=== PATIENT | female | born 1950 | race American Indian/Alaskan Native ===

== ENCOUNTER 2018-08-14 10:10 | Outpatient (CLI) | payer MEDICARE ==
--- NOTE | 2018-08-14 11:31 | Mammography Report ---
Screening tomomammogram and 2-D mammography: Standard imaging demonstrates an intermediate fibroglandular density pattern with asymmetric distribution. There is no focal mass and no significant architectural distortion identified on the standard images. Scattered benign-appearing microcalcifications are noted. Tomomammography shows no additional or suspicious findings. CAD used. Impression: Benign findings. Recommendation: Annual mammogram followup. This patient's prior exams however are being requested for comparison. If made available a comparison report will be issued. BI-RADS CATEGORY: 1 = Negative ACR BI-RADS MAMMOGRAPHIC CODES: 0 = Needs additional imaging evaluation; 1 = Negative; 2 = Benign; 3 = Probably benign; 4 = Suspicious; 5 = Malignant; 6 = Known biopsy-proven malignancy COMMENT: 1. Dense breast tissue, i.e., adenosis, fibrocystic changes, etc., may obscure an underlying neoplasm. 2. Approximately 10% of cancers are not detected with mammography. 3. A negative mammography report should not delay biopsy if a clinically suspicious mass is present.
== END 2018-08-14 10:11 | disposition home or self-care (01) ==
LOC: SPVWC 10:10
DX: Z12.31 Encounter for screening mammogram for malignant neoplasm of breast (principal)
CPT/HCPCS: 77063; 77067

== ENCOUNTER 2019-03-07 09:26 | Outpatient (CLI) | payer MEDICARE ==
--- NOTE | 2019-03-07 14:34 | Mammography Report ---
BONE DEXA:03/07/19 09:26:00 CLINICAL: Postmenopausal. No comparison. TECHNIQUE: Two site bone DEXA performed on an Hologic scanner. FINDINGS: The average BMD of the lumbar spine L1-L4 is 1.070g/cm squared with a T-score of -0.7 and a Z-score of is 1.6. The average BMD of the left hip is 0.906g/cm squared with a T-score of -0.8 and a Z-score of +0.3. The left femoral neck BMD is 0.701g/cm squared with a T score of -1.8 and a Z score of -0.3 IMPRESSION: 1. WHO classification: Normal with average fracture risk based on lumbar spine measurements. 2. WHO classification: Osteopenia with increased fracture risk based on left frontal neck measurements. RECOMMENDATION: Clinical correlation and routine screening. DEFINITIONS: BMD = Bone Mineral Density T-score = BMD related to mean peak bone mass of young adult (mean expressed in Standard Deviation) Z-score = Age matched BMD expressed in SD World Health Organization (WHO) Diagnostic Criteria Normal T-score > -1 SD Osteopenia T-score between -1 and -2.4 SD Osteoporosis T-score -2.5 SD or below NOTE: BMD is not the only risk factor for fracture. One should also consider factors such as the patient's age, risk of falling, previous osteoporotic fracture, family history of osteoporotic fractures, current smoker, and low body weight. Z-scores are not calculated if >80 years of age.
== END 2019-03-07 09:27 | disposition home or self-care (01) ==
LOC: SPVWC 09:26
PROVIDERS: ATTEND Internal Medicine
DX: M85.88 Other specified disorders of bone density and structure, other site (principal); M81.0 Age-related osteoporosis without current pathological fracture; Z78.0 Asymptomatic menopausal state
CPT/HCPCS: 77080

== ENCOUNTER 2019-08-15 09:34 | Outpatient (CLI) | payer MEDICARE ==
--- NOTE | 2019-08-15 14:01 | Mammography Report ---
DIGITAL SCREENING MAMMOGRAM WITH TOMOSYNTHESIS WITH CAD, 08/15/2019 INDICATION: Routine Screening Mammography. SCREENING WITH JUANA TECHNIQUE: Digital bilateral 2D and 3D mammography with tomosynthesis was obtained in the craniocau brent and mediolateral oblique projections. Computer-Aided Detection (CAD) analysis was used for inter pretation of this study. COMPARISON: 08/14/2018 FINDINGS: Breast Density: The breasts are heterogeneously dense, which may obscure small masses. There is no evidence of dominant mass, suspicious calcifications or architectural distortion in eithe r breast. Bilateral benign arterial calcifications. IMPRESSION: No mammographic evidence of malignancy. Follow up recommendation: Routine yearly BI-RADS Category 2: Benign. A "normal" or negative report should not discourage follow up or biopsy of a clinically significant f inding. A written summary of these findings will be mailed to the patient. The patient will be entered into a mammography reporting system which will generate a reminder letter for the patient's next appointmen t at the appropriate interval. [employer] recommends yearly mammograms starting at age 40 and continuing as l alida as a woman is in good health. Breast MRI is recommended for women with an approximate 20-25% or greater lifetime risk of breast cancer, including women with a strong family history of breast or ova alphonso cancer or who have been treated for Hodgkin's disease. Signer Name: Hiram Talamantes MD Signed: 08/15/2019 1:57 PM Workstation Name: [id number]
== END 2019-08-15 09:35 | disposition home or self-care (01) ==
LOC: SPVWC 09:34
DX: Z12.31 Encounter for screening mammogram for malignant neoplasm of breast (principal)
CPT/HCPCS: 77063; 77067